=== PATIENT | male | born 1970 | race Caucasian/White ===

== ENCOUNTER 2020-04-16 11:40 | Emergency (ER) | payer BC ==
[2020-04-16 16:26] LABS: Absolute Lymphocytes (CBC) 2.5 K/uL (0.7-4.9); Basophils % 0.7 % (0-1.3); Hematocrit 46.5 % (39.6-49.0); Lymphocytes % 24.8 % (15.3-44.8); MPV 7.4 fL (7.6-11.3); RBC Red Blood Cell Count 5.23 M/uL (4.33-5.43)
--- NOTE | 2020-04-16 16:43 | RAD REPORT ---
EXAM DESCRIPTION: RAD - Chest Single View - 04/16/2020 4:26 pm CLINICAL HISTORY: FEVER COMPARISON: Two view chest November 2018 TECHNIQUE: AP portable chest image was obtained 04/16/2020 4:26 pm . FINDINGS: Lungs are clear. Interstitial pattern matches comparison. Heart and vasculature are normal . No measurable pleural effusion and no pneumothorax. No acute bony abnormality seen. No acute aortic findings suspected. IMPRESSION: No acute cardiopulmonary process.
[2020-04-16 16:50] LABS: Potassium 4.2 mmol/L (3.5-5.1)
[2020-04-16 17:21] LABS: Urine Bacteria <20 /HPF (NONE SEEN); Urine RBC NONE SEEN /HPF (NONE SEEN)
[2020-04-16 17:35] LABS: Urine Blood NEGATIVE (NEG); Urine Glucose 2+ (NEG); Urine Protein NEGATIVE (NEG); Urine Specific Gravity 1.025 (1.005-1.030); Urine pH 5.5 (5.0-7.0)
[2020-04-16 17:36] LABS: SARS-COV-2 RT PCR POSITIVE (NEGATIVE)
--- NOTE | 2020-04-16 17:43 | EDPHYS ---
Physician Documentation [facility] [place], [place] Name: Rusty Brennan Age: 50 yrs Sex: Male : 1970 Arrival Date: 04/16/2020 Time: 11:43 Bed 24 Private MD: ED Physician Venu Johansen HPI: 04/16 16:00 This 50 yrs old Male presents to ER via Ambulatory with complaints of Fever. rn 16:00 The patient reports fever, that was measured at 103 degrees Fahrenheit. rn 16:01 Onset: The symptoms/episode began/occurred at an unknown time. Modifying factors: there rn are no obvious modifying factors. Severity of symptoms: At their worst the symptoms were mild in the emergency department the symptoms have improved. The patient has experienced similar episodes in the past. Reports diagnosed with COVID Mar 08, felt like got better 2 weeks later, has had persistent fever, reports tmax 103, takes motrin, told by pcp has lingering symptoms. No new symptoms. Denies sob or productive cough, no hemoptysis, no abd pain/vomiting/diarrhea. No skin rashes. No chest pain.. Historical: - Allergies: 12:03 No Known Drug Allergies; sv - PMHx: 12:03 Pneumonia; sv - PSHx: 12:03 detached retina; sv - Immunization history:: Adult Immunizations up to date. - Social history:: Smoking status: Patient denies any tobacco usage or history of. - Family history:: not pertinent. - Hospitalizations: : No recent hospitalization is reported. ROS: 16:01 Constitutional: + fever Eyes: Negative for injury, pain, redness, and discharge, Neck: rn Negative for injury, pain, and swelling, Cardiovascular: Negative for chest pain, palpitations, and edema, Respiratory: Negative for shortness of breath, cough, wheezing, and pleuritic chest pain, Abdomen/GI: Negative for abdominal pain, nausea, vomiting, diarrhea, and constipation, Back: Negative for injury and pain, MS/Extremity: Negative for injury and deformity, Skin: Negative for injury, rash, and discoloration, Neuro: Negative for headache, numbness, tingling, and seizure. Exam: 16:01 Constitutional: This is a well developed, well nourished patient who is awake, alert, rn and in no acute distress. Head/Face: Normocephalic, atraumatic. Neck: Trachea midline, no masses palpated, and no cervical lymphadenopathy. Supple, full range of motion without nuchal rigidity, or vertebral point tenderness. No Meningismus. Cardiovascular: Regular rate and rhythm. No pulse deficits. Respiratory: No increased work of breathing, no retractions or nasal flaring. Abdomen/GI: soft, non-tender Skin: Warm, dry MS/ Extremity: Pulses equal, no cyanosis. Neuro: Awake and alert, GCS 15 Vital Signs: 12:03 BP 130 / 74; Pulse 89; Resp 16; Temp 98.3(O); Pulse Ox 100% on R/A; Weight 136.08 kg; sv Height 5 ft. 4 in. (162.56 cm); Pain 0/10; 16:37 BP 135 / 93; Pulse 86; Resp 16; Temp 98.4(O); Pulse Ox 99% on R/A; mh5 17:54 BP 133 / 86; Pulse 68; Resp 18; Temp 97.4(O); Pulse Ox 98% on R/A; mh5 12:03 Body Mass Index 51.50 (136.08 kg, 162.56 cm) sv MDM: 15:44 Patient medically screened. rn 17:41 Differential diagnosis: viral Infection, URI, pneumonia UTI. Data reviewed: vital rn signs, nurses notes, lab test result(s), radiologic studies, plain films, and as a result, I will discharge patient. Counseling: I had a detailed discussion with the patient and/or guardian regarding: the historical points, exam findings, and any diagnostic results supporting the discharge/admit diagnosis, lab results, radiology results, the need for outpatient follow up, to return to the emergency department if symptoms worsen or persist or if there are any questions or concerns that arise at home. Special discussion: I discussed with the patient/guardian in detail that at this point there is no indication for admission to the hospital. It is understood, however, that if the symptoms persist or worsen the patient needs to return immediately for re-evaluation. ED course: Neg CXR, neg UA, neg flu, COVID still positive, too early to be reinfected, will dc home with instructions to confirm or calibrate thermometer, and f/u with Dr. Bahena. . 04/16 15:56 Order name: CBC with Diff rn 04/16 15:56 Order name: Basic Metabolic Panel rn 04/16 15:56 Order name: COVID-19 : Document "Date of Symptom Onset" if Symptomatic. rn 04/16 15:56 Order name: Urine Microscopic Only rn 04/16 15:56 Order name: Procalcitonin; Complete Time: 17:40 rn 04/16 15:56 Order name: CBC with Automated Diff; Complete Time: 16:46 EDMS 04/16 15:56 Order name: XRAY Chest (1 view); Complete Time: 16:46 rn 04/16 15:56 Order name: Basic Metabolic Panel; Complete Time: 17:30 EDMS 04/16 15:56 Order name: Urine Microscopic Only; Complete Time: 17:30 EDMS 04/16 16:04 Order name: Flu ss 04/16 16:30 Order name: Urine Dipstick--Ancillary (enter results); Complete Time: 17:40 bd 04/16 17:29 Order name: COVID-19/FLU A+B; Complete Time: 17:40 EDMS 04/16 15:56 Order name: IV Start; Complete Time: 16:17 rn 04/16 15:56 Order name: Urine Dipstick-Ancillary (obtain specimen); Complete Time: 16:39 rn Administered Medications: No medications were administered Disposition: 04/16/20 17:43 Discharged to Home. Impression: Fever, unspecified. - Condition is Stable. - Discharge Instructions: Fever, Adult. - Medication Reconciliation Form, Thank You Letter, Antibiotic Education, Prescription Opioid Use form. - Follow up: Private Physician; When: As needed; Reason: Recheck today's complaints, Re-evaluation by your physician. - Problem is an ongoing problem. - Symptoms have improved. Signatures: Dispatcher [employer] [facility] Quiana Diggs RN RN sv Nieto, Roman, MD MD rn Smirch, Shelby, RN RN ss Corrections: (The following items were deleted from the chart) 16:18 15:56 CORONAVIRUS ordered. [facility] 16:18 16:05 Influenza Screen (A ordered. [facility] 18:10 17:43 04/16/2020 17:43 Discharged to Home. Impression: Fever, unspecified. Condition is ss Stable. Forms are Medication Reconciliation Form, Thank You Letter, Antibiotic Education, Prescription Opioid Use. Follow up: Private Physician; When: As needed; Reason: Recheck today's complaints, Re-evaluation by your physician. Problem is an ongoing problem. Symptoms have improved. rn
--- NOTE | 2020-04-16 17:43 | ER ---
Nurse's Notes [facility] Name: Rusty Brennan Age: 50 yrs Sex: Male : 1970 Arrival Date: 04/16/2020 Time: 11:43 Bed 24 Private MD: Diagnosis: Fever, unspecified Presentation: 04/16 12:01 Chief complaint: Patient states: fever Tmax 103, COVID+ in March and his fever sv stopped around 03/23/20. c/o fatigue and cough. Motrin taken this morning around 0300. Coronavirus screen: Client denies travel out of the [place] in the last 14 days. Client presents with at least one sign or symptom that may indicate coronavirus-19. Standard/surgical mask placed on the client. Provider contacted for isolation considerations. Client reports previous positive COVID test result. Ebola Screen: No symptoms or risks identified at this time. Risk Assessment: Do you want to hurt yourself or someone else? Patient reports no desire to harm self or others. Onset of symptoms was April 2021. 12:01 Method Of Arrival: Ambulatory sv 12:01 Acuity: MARÍA 3 sv 12:03 Initial Sepsis Screen: Does the patient meet any 2 criteria? No. Patient's initial sv sepsis screen is negative. Does the patient have a suspected source of infection? No. Patient's initial sepsis screen is negative. Triage Assessment: 12:05 General: Appears in no apparent distress. uncomfortable, Behavior is calm, cooperative, sv appropriate for age. Neuro: Level of Consciousness is awake, alert, obeys commands, Oriented to person, place, time, situation, Gait is steady. Respiratory: Respiratory effort is even, unlabored. Historical: - Allergies: 12:03 No Known Drug Allergies; sv - PMHx: 12:03 Pneumonia; sv - PSHx: 12:03 detached retina; sv - Immunization history:: Adult Immunizations up to date. - Social history:: Smoking status: Patient denies any tobacco usage or history of. - Family history:: not pertinent. - Hospitalizations: : No recent hospitalization is reported. Screenin:16 Abuse screen: Denies threats or abuse. Denies injuries from another. Nutritional ss screening: No deficits noted. Tuberculosis screening: Never had TB. Fall Risk None identified. Assessment: 18:09 Reassessment: Patient appears in no apparent distress at this time. Patient and/or ss family updated on plan of care and expected duration. Pain level reassessed. Patient is alert, oriented x 3, equal unlabored respirations, skin warm/dry/pink. Vital Signs: 12:03 BP 130 / 74; Pulse 89; Resp 16; Temp 98.3(O); Pulse Ox 100% on R/A; Weight 136.08 kg; sv Height 5 ft. 4 in. (162.56 cm); Pain 0/10; 16:37 BP 135 / 93; Pulse 86; Resp 16; Temp 98.4(O); Pulse Ox 99% on R/A; mh5 17:54 BP 133 / 86; Pulse 68; Resp 18; Temp 97.4(O); Pulse Ox 98% on R/A; mh5 12:03 Body Mass Index 51.50 (136.08 kg, 162.56 cm) sv ED Course: 11:43 Patient arrived in ED. ds1 12:01 Arm band placed on. sv 12:03 Triage completed. sv 15:44 Venu Johansen MD is Attending Physician. rn 15:56 Анна Macedo RN is Primary Nurse. ss 16:10 Missed attempt(s): 20 gauge in right antecubital area. mh5 16:15 Inserted saline lock: 22 gauge in right hand, using aseptic technique. Blood collected. ss 16:16 Patient has correct armband on for positive identification. Bed in low position. Call ss light in reach. Pulse ox on. NIBP on. 16:26 XRAY Chest (1 view) In Process Unspecified. EDMI 16:39 Urine Microscopic Only Sent. 5 16:39 CBC with Diff Sent. 5 16:39 Basic Metabolic Panel Sent. 5 16:39 Procalcitonin Sent. 5 16:39 Initial lab(s) drawn, by ED staff, sent to lab. 5 16:41 Urine Dipstick--Ancillary (enter results) Sent. 5 16:41 Urine Microscopic Only Sent. 5 17:05 Flu Sent. ss 18:09 No provider procedures requiring assistance completed. IV discontinued, intact, ss bleeding controlled, No redness/swelling at site. Pressure dressing applied. Administered Medications: No medications were administered Outcome: 17:43 Discharge ordered by . rn 18:09 Discharged to home ambulatory. ss 18:09 Condition: good 18:09 Discharge instructions given to patient, Instructed on discharge instructions, follow up and referral plans. medication usage, Demonstrated understanding of instructions, follow-up care, medications. 18:10 Patient left the ED. Signatures: Dispatcher [employer] Quiana Vazquez RN RN sv Sanford, Demi ds1 Venu Johansen MD MD rn Smirch, Shelby, RN RN ss Martinez, Maria [facility] Corrections: (The following items were deleted from the chart) 12:06 12:01 Chief complaint: Patient states: fever Tmax 103, COVID+ in March and his fever sv stopped around 03/23/20. c/o fatigue and cough. sv 12:06 12:03 Pulse 89bpm; Resp 16bpm; Pulse Ox 100%; Temp 98.3F; 136.08 kg; Height 5 ft. 4 sv in.; BMI: 51.4; sv 17:57 17:54 BP 133 / 86; Pulse 68bpm; Resp 18bpm; Pulse Ox 98% RA; Temp 98.2F Oral; mh5 mh5
[2020-04-16 18:23] VITALS: BP 133/86; TEMP 97.4; O2SAT 98
--- OUTSIDE RECORDS SUMMARY | 2020-04-17 21:58 | XMS REPORT | Clinical Summary ---
:1970 Author Organization [facility] Address [address] [place] [address] Care Team Providers Name Role Phone Servando Bahena MD Primary Care Provider Allergies No Known Active Allergies Medications Medication Sig Dispensed Refills Start Date End Date Status ZOLOFT 100 mg tablet Take 100 mg by 0 09/14/2017 Active mouth daily. ULTRAM 50 mg tablet 0 08/17/2017 Active DUEXIS 800-26.6 mg Take 1 tablet by 1 09/11/2017 Active tablet mouth 3 (three) times a day. multivitamin with Take 1 tablet by 0 Active minerals tablet mouth daily. Active Problems Problem Noted Date OA (osteoarthritis) of knee 10/06/2017 Left knee pain 09/18/2017 Surgical History Surgery Date Site/Laterality Comments CATARACT EXTRACTION W/ 07/07/2017 - Left INTRAOCULAR LENS IMPLANT 08/06/2017 CHEST TUBE INSERTION 03/09/2014 - Right from pneumo gladys 03/08/2015 REPAIR, RETINAL TEAR OR Left LATTICE DEGENERATION, USING CRYOPEXY ARTHROPLASTY, KNEE, TOTAL 10/06/2017 Knee/N/A Proced ure: LEFT TOTAL KNEE ARTHROPLAST Y; Surgeon: Dmitriy Hall MD; Lo cation: [facility] 19 OR; Service: Orthopedics; Laterality: N/A; Medical devices from this surgery are in the Implants section . Medical History Medical History Date Comments Osteoarthritis 2017 Arthritis 2017 Lai's cyst 2018 behind left knee History of Right hip Bursitis 2017 Anesthesia combative post retin a surgery 2013; no problems since; NFHA P Does not exercise x 5 months no exerci se but used to do elliptical 3-4 d/wk x 30 mins; no chest pain or sob bu t has difficulty due to knee pain GEM on CPAP History of pneumonia 2013-was admitted x 6 days with chest tube Depression History of diabetes mellitus was on meds 5 yrs ago; lost weight and no longer taking it post 97 lbs wt loss Morbid obesity with BMI of 45.0-49.9, BM I-47 adult (HCC) History of recent steroid use for knee p ain 07/2017 Uses hearing aid bilaterally Wears reading eyeglasses Social History Tobacco Use Types Packs/Day Years Used Date Never Smoker Smokeless Tobacco: Never Used Alcohol Use Drinks/Week oz/Week Comments No Sex Assigned at Date Recorded Not on file Last Filed Vital Signs Not on file Plan of Treatment Health Maintenance Due Date Last Done Comments COVID-19 VACCINE (1 of 2) 1984 HEPATITIS C SCREENING 02/03/1986 COLONOSCOPY SCREENING 02/03/2018 SHINGLES VACCINES (#1) 02/03/2018 INFLUENZA VACCINE 10/08/2019 04/21/2018 Implants Implanted Type Area Small Parts Assembler Device Shelf Model / Identifier Expiration Serial / Date Lot Vanguard Cr Por Fem-Lt 65 - [id number] IMPLANT Left: [employer] 09/15/2027 [id number] / Implanted: Qty: 1 on 10/06/2017 by Dmitriy Hall MD at [facility] DEVICES Knee / [id number] Biomet Regenx Josefina Tib Tray 71mm - [id number] IMPLANT Left: B [employer] 05/23/2027 [id number] / Implanted: Qty: 1 on 10/06/2017 by Dmitriy Hall MD at [facility] Knee / [id number] E-Poly Vanguard Cr Tib Brng 71/75 X 12 - [id number] [id number] IMPLANT Left: [employer] 03/26/2022 [id number] / Implanted: Qty: 1 on 10/06/2017 by Dmitriy Hall MD at [facility] Knee / [id number] Stem Tib Prim Finned 40mm Ascent Maxim - [id number] Knee Joint Le ft: [employer] 09/16/2027 [id number] / Implanted: Qty: 1 on 10/06/2017 by Dmitriy Hall MD at [facility] Implants Knee / [id number] Results Not on fileafter 04/17/2019 Advance Directives For more information, please contact: [phone] Type Date Recorded Patient Merry Go Round Attendant Explanati on Advance Directives, Living Will 10/06/2017 6:16 AM and 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
--- OUTSIDE RECORDS SUMMARY | 2020-04-17 21:58 | XMS REPORT | Continuity of Care Document ---
:1970 Author Organization [facility] t Address [address] [place] [address] Dr. Gons[address]. [address] [place] [address] Care Team Providers Name Role Phone Servando Bahena MD Primary Care Physician Lab, Fam Pob I Attending Clinician Unavailable Problems Condition Condition Condition Status Onset Resolution Last Treating Co mments Source Name Details Category Date Date Treatment Clinician Date OA OA Disease Active [place] (osteoarth (osteoarth 10-06 Me thodi ritis) of ritjerman) of 00:00: st knee knee 00 Left knee Left knee Disease Active August ston pain pain 7-13 [facility] 00:00: st 00 Allergies, Adverse Reactions, Alerts This patient has no known allergies or adverse reactions. Social History Social Habit Start Date Stop Date Quantity Comments Source Sex Assigned At [facility] ethodist Tobacco use and 2017-10-07 2017-10-07 Never used [facility] ethodist exposure 00:00:00 00:00:00 Alcohol intake 2017-10-07 2017-10-07 Current [facility] thodist 00:00:00 00:00:00 non-drinker of alcohol (finding) Smoking Status Start Date Stop Date Source Never smoker [place] Roberto Carlos Medications Ordered Filled Start Stop Current Ordering Indication Dosage Frequency Signature Comments Components Source Medication Medication Date Date Medication? Clinician (SIG) Name Name multivitami Yes 1{tbl} QD Take 1 [place] with 8-01 tablet by [facility] minerals 12:03: mouth st tablet 58 daily. ZOLOFT 100 Yes 100mg QD Take 100 [place] mg tablet 7-09 mg by [facility] 00:00: mouth st 00 daily. DUEXIS Yes 1{tbl} [id number] Take 1 [place] 800-26.6 mg 7-06 [id number] tablet by [facility] tablet 00:00: 3D mouth 3 st 00 (three) times a day. ULTRAM 50 Yes [place] mg tablet 6-11 [facility] 00:00: st 00 Procedures This patient has no known procedures. Plan of Care Planned Activity Planned Date Details Comments Source Future Scheduled 2019-10-08 INFLUENZA VACCINE [place] [facility] 00:00:00 [code = INFLUENZA VACCINE] Future Scheduled 2018-02-03 COLONOSCOPY SCREENING [place] [facility] 00:00:00 [code = COLONOSCOPY SCREENING] Future Scheduled 2018-02-03 SHINGLES VACCINES [place] [facility] 00:00:00 (#1) [code = SHINGLES VACCINES (#1)] Future Scheduled 1986-02-03 Hepatitis C screening [place] [facility] 00:00:00 (procedure) [code = 925117368] Future Scheduled 1984 COVID-19 VACCINE (1 [place] [facility] 00:00:00 of 2) [code = COVID-19 VACCINE (1 of 2)] Encounters Start End Encounter Admission Attending Care Care Encounter Source Date/Time Date/Time Type Type Clinicians Facility Department ID 2020-03-12 2020-03-12 Laboratory Lab, [facility] [id number] 19:00:54 19:20:54 Only Fam Pob I [facility] [id number] [place] [id number] Professio [phone] nal [address] Results This patient has no known results.
--- OUTSIDE RECORDS SUMMARY | 2020-04-17 21:58 | XMS REPORT | Summary of Care ---
:1970 Author Organization [facility] Address [address] [place] [address] Care Team Providers Name Role Phone Josef Duong Al Primary Care Provider Reason for Visit Reason Comments Cough Chills Diarrhea Encounter Details Date Type Department Care Team Description 03/12/2020 Laboratory Only [facility] Roxy Nuñez, BRIDGER [address] [facility] [address] [place] [address] Exposure to Medicine - [facility], Ad[facility] Fam Pob I SARS-associated [address] coronaviru s ([address] Dx) [place] [address] Allergies No Known Allergiesdocumented as of this encounter (statuses as of 03/12/2020) Medications Medication Sig Dispensed Refills Start Date End Date Status donepezil 5 mg tablet Take 5 mg by 0 Active mouth at bedtime. SERTraline 100 mg tablet Take 100 mg by 0 Active mouth daily. traMADOL 50 mg tablet Take 50 mg by 0 Active mouth every 6 (six) hours as needed. multivitamin solution Take 15 mL by 0 Active mouth daily. documented as of this encounter (statuses as of 03/12/2020) Active Problems No known active problemsdocumented as of this encounter (statuses as of 03/12/2020) Social History Tobacco Use Types Packs/Day Years Used Date Never Smoker Smokeless Tobacco: Never Used Alcohol Use Drinks/Week oz/Week Comments No Sex Assigned at Date Recorded Not on file documented as of this encounter Last Filed Vital Signs Not on filedocumented in this encounter Nursing Notes Treasure Fenton MA - 03/12/2020 7:00 PM Rox Brennan is a 50 year old male here for a Rule Out Covid-19 Nasopharyngeal Swab. Patient educated on plan of care for visit, swabbing technique, risks and benefits of test and length of time to receive results. Verbal consent obtained to perform test. [facility] Fact Sheet for Patients provided to patient. All droplet and contact precautions taken with appropriate PPE worn while interacting with patient. - Goggles - N95 Mask - Gloves - Gown RR=16 O2 Sat=97 Patient swabbed using appropriate nasopharyngeal technique, and patient tolerated well. Patient was discharged in stable condition. Treasure Fenton MA 03/12/2020 7:05 PM NICAL EDITOR documented in this encounter Plan of Treatment Name Type Priority Associated Diagnoses Order S chedule COVID-19 (MOLECULAR LAB Routine Exposure to Expected : 03/12/2020, TESTING SARS-associated Expires: 022 NUCLEIC ACID coronavirus AMPLIFICATION) Health Maintenance Due Date Last Done Comments Depression Screening 1980 DTaP,Tdap,and Td Vaccines (1 - 02/03/1987 Tdap) COLON CANCER SCREENING ANNUAL 02/03/2018 FIT/FOBT COLON CANCER SCREENING FIT DNA 02/03/2018 EVERY 3 YEARS COLON CANCER SCREENING 02/03/2018 SIGMOIDOSCOPY EVERY 5 YEARS COLONOSCOPY 02/03/2018 Colorectal Cancer Screening 02/03/2018 Zoster Recombinant Vaccine 02/03/2018 (SHINGRIX) (1 of 2) INFLUENZA VACCINE (#1) 2019 PNEUMOCOCCAL 0-64 YEARS COMBINED Aged Out No longer eligible based on SERIES patient's age to complete this topic documented as of this encounter Implants Implanted Type Area Dentist Device Shelf Model / Identifier Expiration Date Ser ial / Lot Lens, Minh #[id number] - [id number] LENS Left: Eye Minh 01/06/2022 [id number] / Implanted: Qty: 1 on 07/30/2017 by Rashaun Connolly MD at [facility] 2 [id number] / [id number] 1 05 documented as of this encounter Results Not on filedocumented in this encounter Visit Diagnoses Diagnosis Exposure to SARS-associated coronavirus - Primary documented in this encounter Additional Health Concerns Infection Onset Date Last Indicated Resolved Time COVID-19 Rule Out 03/12/2020 03/12/2020 documented as of this encounter Insurance Payer Benefit Plan Subscriber ID Effective Dates Phone Address Type / Group [facility] [id number] [id number] [phone] [address] PPO/POS [place] [employer] [id number] [place] [address] documented as of this encounter
== END 2020-04-16 18:10 | disposition home or self-care (01) ==
LOC: ER 11:40
DX: U07.1 COVID-19 (principal)
CPT/HCPCS: 85025; 80048; 36415; 84145; 0240U; 71045; 99284; 81003; 81015

== ENCOUNTER 2024-02-22 10:01 | Inpatient (IN) | payer BC ==
[2024-02-22 10:46] VITALS: BMI 47.4
[2024-02-22] MEDS ORDERED: ONDANSETRON 4 MG/2 ML VIAL IV PRN (11:13)
[2024-02-22 11:40] LABS: Absolute Eosinophils 0.1 K/uL (0-0.5); Absolute Lymphocytes (CBC) 1.1 K/uL (0.7-4.9); Absolute Monocytes 1.2 K/uL (0.1-1.3); Absolute Neutrophil 9.3 K/uL (1.8-8.0); Basophils % 0.4 % (0-1.3); Hematocrit 47.9 % (39.6-49.0); Hemoglobin 16.1 g/dL (13.6-17.9); Lymphocytes % 9.4 % (15.3-44.8); MCHC 33.6 g/dL (32.0-36.0); MCV 92.2 fL (80-100); MPV 6.8 fL (7.6-11.3); Monocytes % 10.6 % (3.3-12.3); Neutrophils % 78.6 % (41.7-73.7); Nucleated Red Blood Cells % 0.1 % (0-0); Platelets 201 thou/uL (152-406); Red Cell Distribution Width 13.3 % (12.1-15.2)
[2024-02-22 12:02] LABS: Albumin 3.7 g/dL (3.4-5.0); Albumin/Globulin Ratio 0.9 (1.1-1.8); Anion Gap 9.7 mEq/L (5.0-15.0); Bilirubin Total 0.7 mg/dL (0.2-1.0); Globulin 4.3 g/dL (2.3-3.5); Magnesium 2.1 mg/dL (1.6-2.4); Potassium 3.7 mEq/L (3.5-5.1)
[2024-02-22] MEDS: MORPHINE 2 MG/ML SYR IV PRN (12:11)
[2024-02-22] MEDS: NA CHLORIDE 0.9% 1,000 ML IV SCH ×2 (12:13→12:45)
[2024-02-22] MEDS: PIPER TAZO 3.375 GM in NA CHLORIDE 0.9% 100 ML IV SCH (12:13)
--- NOTE | 2024-02-22 12:16 | RAD REPORT ---
EXAMINATION: CT HEAD WITHOUT CONTRAST CLINICAL INDICATION: Male, 54 years old.cellulitis face/ear TECHNIQUE: Axial CT images from the skull base to the vertex without intravenous contrast. Coronal an d sagittal reformatted images were created from the data set. One or more of the following dose reduction techniques were used: Automated exposure control, adjustment of the mA and/or kV according to patient size, and/or iterative reconstruction. Unless otherwise specified, incidental findings do not require dedicated imaging follow-up. [id number]. COMPARISON: No prior exam. FINDINGS: INTRACRANIAL: No acute intracranial hemorrhage. No hydrocephalus. No mass effect or midline shift. No significant white matter disease. Diffuse edema associated with the right year including along the right external auditory canal. Small right parotid nodules likely reflecting reactive lymph nodes. Th e external auditory canal is patent. VASCULATURE: No visualized abnormalities in the arteries or dural venous sinuses. SCALP/SKULL: Trace right mastoid fluid. SINUSES: The visualized paranasal sinuses and mastoid air cells are predominantly clear. IMPRESSION: No acute intracranial abnormality. Skin thickening and soft tissue swelling at the right ear and external auditory canal which may repre sent cellulitis and otitis externa. There is trace right mastoid fluid which is nonspecific but no evidence to suggest involvement of the internal auditory canal or evidence of otomastoiditis. The rig ht external ear canal is patent. No abscess identified.
--- NOTE | 2024-02-22 12:17 | RAD REPORT ---
EXAM: Chest Pa And Lat (2 Views) HISTORY: cellulitis face COMPARISON: 04/16/2020 FINDINGS: LUNGS/PLEURA: The lungs are clear. No pleural effusions or pneumothorax. No pulmonary edema. Minimal linear scarring at the right lung base. MEDIASTINUM: The mediastinal silhouette is within normal limits. CARDIAC: The cardiac silhouette is within normal limits. UPPER ABDOMEN: No significant abnormality. BONES: No acute fracture. LINES/TUBES/OTHER: N/A IMPRESSION: No evidence of acute cardiopulmonary disease.
[2024-02-22] MEDS: INSULIN REGULAR (HUMAN) 100 UNIT/ML SQ SCH (12:20)
[2024-02-22] MEDS: ENOXAPARIN 40 MG/0.4 ML SQ SCH (16:39)
[2024-02-22] MEDS: METFORMIN HCL 500 MG TAB PO SCH (16:39)
[2024-02-22] MEDS: TOBRADEX 0.3-0.1% OPTH SUSP OTIC SCH (21:09)
[2024-02-23] MEDS: ACETAMINOPHEN 500 MG TAB PO PRN (00:42)
--- NOTE | 2024-02-23 06:55 | HP ---
Date of Admission: 02/22/2024 Chief Complaint: Redness, swelling, and pain of face. History Of Present Illness: This is a 54-year-old pleasant male patient who came into office with his today with 3 days history of swelling and redness involving right external ear and area of face around this. Denies any history of insect bite. Has had some low-grade fever with this, but he had no ear discharge or bleeding. Denies any cough, congestion, sore throat. After he was evaluated, decision was made to admit him to the hospital for this problem. Allergies: NO KNOWN ALLERGIES. Medications: 1. Atorvastatin 20 mg daily in the evening. 2. Jardiance 25 mg daily. 3. Losartan 50 mg daily in morning. 4. Metformin 500 mg takes 2 tablets 2 times a day. 5. Sertraline 100 mg takes 2 tablets daily. 6. Januvia 100 mg daily. 7. Mounjaro 5 mg once a week. Review of Systems: ENT: As mentioned above. Dermatology: As mentioned above. CONSTITUTIONAL: As mentioned above. All other systems reviewed and negative. Past Medical History: Significant for: 1. Hypertension. 2. Hyperlipidemia. 3. Type 2 diabetes mellitus. 4. Benign prostatic hypertrophy. 5. Depression. Past Surgical History: 1. Cataract surgery. 2. Knee surgery. Family History: Father , had stroke. Mother , had diabetes, hypertension, and stroke. Social History: Negative for smoking and alcohol use. Physical Examination: Vital Signs: Blood pressure 126/83, pulse 92, temperature 98.3, respiratory rate 15, weight 285.2 pounds, height 63.5 inches. General: Awake, alert, oriented, not in distress. HEENT: Head atraumatic, normocephalic. Conjunctivae nonerythematous. Sclerae white. Mouth, no thrush or edema noted. Ears/Nose, no mass, lesion, discharge noted. Face examination shows right external ear is swollen and this involves entire external ear and it is red, warm, and tender to touch. The patient also has swelling and redness of right face anterior to this external ear and there is no open wound. His skin behind the right external ear also is red including skin over the right mastoid process with some soft tissue swelling. There is no open wound. Right ear exam, his right ear canal is moderately swollen. There is no exudate. Left ear exam is normal. Neck: Supple. No JVD, lymph nodes, bruit, thyromegaly noted. Lungs: Bilateral good equal air entry. Clear to auscultation. No rhonchi. No rales. Heart: Normal heart sounds, no murmur or gallop. Abdomen: Soft, bowel sounds normal. No guarding, rigidity, tenderness, mass, hepatosplenomegaly, distention, or bruit noted. Extremities: No leg edema. No calf tenderness. Skin: No rash, ulcer, cellulitis. Lymphatics: No lymph node enlargement in neck, supraclavicular, infraclavicular region. Neuro: No focal neurological deficit. Chest: Unremarkable. External Genitalia: Deferred. Rectal: Deferred. Laboratory Data: WBC 7.8, hemoglobin 16.1, platelets 201. Sodium 133, potassium 3.7, chloride 104, bicarb 23, BUN 17, creatinine 1.35, glucose 241. Liver function tests unremarkable. Initial lactic acid 2.3. Repeat lactic acid 2.2. Chest x-ray, no acute cardiopulmonary changes and CAT scan of the head was negative for any acute intracranial changes. There is no evidence of mastoiditis. Impression: 1. Cellulitis, right face. 2. Otitis externa, right ear. 3. Acute kidney injury. 4. Type 2 diabetes mellitus, uncontrolled. 5. Hypertension. 6. Hyperlipidemia. 7. Depression. Plan: We will go ahead and admit the patient to hospital for further evaluation and management of this problem. The patient is appropriate for inpatient and is expected to spend 2 midnights in hospital. We will go ahead and start the patient on IV antibiotic, which is Zosyn per order and also start the patient on eardrops Tobradex per order. We will monitor history of infection and make adjustment on antibiotic if needed depending on his response. For acute kidney injury, we will go ahead and give IV fluid and monitor blood work. For diabetes, we will continue his home medications per order and also order sliding scale insulin. For hypertension, continue his antihypertensive medication and monitor blood pressure. No need for any further intervention at this time. For hyperlipidemia, continue his statin therapy and no need for further intervention. For depression, we will continue sertraline per order. No need for further intervention. Total time spent today 85 minutes including evaluation and management for this admission, review of prior office visit record and making arrangements for hospital admission. SAQIB/MODL Voice ID: [id number] VENKAT
[2024-02-23 07:17] LABS: Anion Gap 10.5 mEq/L (5.0-15.0); Potassium 3.5 mEq/L (3.5-5.1)
[2024-02-23] MEDS: ALOGLIPTIN BENZOATE 12.5 MG TABLET PO SCH (08:49)
[2024-02-23] MEDS: LOSARTAN POTASSIUM 50 MG TABLET PO SCH (08:49)
[2024-02-23] MEDS: SERTRALINE HCL 100 MG TAB PO SCH (08:50)
[2024-02-23] MEDS: POTASSIUM 25 MEQ EFFERV TAB PO ONE (08:50)
[2024-02-23] MEDS: NA CHLORIDE 0.9% 1,000 ML IV SCH (08:52)
[2024-02-23] MEDS ORDERED: HOME MED 1 EA UNK (Sitagliptin Phosphate [Januvia] 50 MG Tablet) PO SCH (09:00)
[2024-02-23] MEDS: HOME MED 1 EA UNK (Empagliflozin [Jardiance] 25 MG Tablet) PO SCH (09:00)
--- NOTE | 2024-02-23 20:32 | PN ---
Date of Progress Note: 02/23/2024 Subjective: The patient was seen this morning for followup. He was lying in bed. His was pres ent with him at bedside. No new complaints or problems reported by patient. Objective: Vital Signs: Reviewed. HEENT: Unremarkable except right external ear redness and swelling is slightly better today than yes terday. Redness and soft tissue swelling of skin anterior to the right external ear involving face i s also better today compared to yesterday. Lungs: Clear to auscultation. Heart: Sounds normal. Abdomen: Soft. Bowel sounds normal. No guarding, rigidity, tenderness, distention. Extremities: No leg edema. Laboratory Data: Sodium 133, potassium 3.5, chloride 104, bicarb 20, BUN 16, creatinine 1.12, glucos e 194. Impression: 1.Cellulitis, face. 2.Right otitis externa. 3.Acute kidney injury. 4.Type 2 diabetes mellitus. Plan: We will go ahead and continue IV fluid, reduce rate. Continue IV antibiotics. We will repeat blood work tomorrow. Ambulation was encouraged. Possible discharge to go home tomorrow depending o n his condition and details and plan of treatment discussed with the patient. SAQIB/MODL Voice ID: [id number] Report ID: [id number]
[2024-02-24 06:11] LABS: Anion Gap 12.6 mEq/L (5.0-15.0); Potassium 3.6 mEq/L (3.5-5.1)
[2024-02-24 08:23] VITALS: BP 154/82; TEMP 99.2
[2024-02-24] MEDS: POTASSIUM CL SA 10 MEQ TAB PO ONE (08:39)
[2024-02-24] MEDS: Empagliflozin [Jardiance] 25 MG Tablet *PT OWN MED PO SCH (08:39)
[2024-02-24 10:30] VITALS: O2SAT 90
--- NOTE | 2024-02-25 06:43 | DS ---
Date of Discharge: 02/24/2024 Disposition: Discharged to go home. Discharge Medications And Instructions: 1. Continue all prior home medications. 2. Take Augmentin 875 mg 2 times a day with food for 10 days. 3. Doxycycline 100 mg 2 times a day with food for 10 days. 4. Avoid direct sunlight exposure while taking doxycycline. 5. Follow up at my office next week. 6. TobraDex drops, 4 drops in right ear 2 times a day. Physical Examination: HEENT: Significant for very minimal pink discoloration of right external ear with very minimal swelling. Overall significantly better. Skin over right external ear appears dry. Skin behind right external ear is normal. The redness and slight swelling around the mastoid area of soft tissue swelling and scalp redness from area behind the right ear has resolved and redness and soft tissue swelling anterior to right external ear has significantly improved. Has very minimal area of faint pink discoloration just anterior to ear. Otherwise, rest of the area has improved. Lungs: Clear to auscultation. Heart: Sounds normal. Abdomen: Soft. Bowel sounds normal. No guarding, rigidity, tenderness, distention. Extremities: No leg edema. Hospital Course: This is a 54-year-old pleasant male patient who came into office with redness, swelling, and pain over face and right ear area. Please see dictated H and P for more information. The patient was evaluated at office, decision was made to admit him to the hospital with cellulitis of face and right otitis externa. The patient also had acute kidney injury as noted on the initial labs. After he was admitted to the hospital, we started him on TobraDex ear drops as he had right otitis externa. Along with that, we started him on IV antibiotic, which was Zosyn. Overall, his condition has improved significantly. IV fluid was given for acute kidney injury problem and that actually has helped to improve his renal function. Today, after I saw him, after seeing significant improvement, decision was made to discharge him to go home with above-mentioned medications and instructions. Final Diagnoses: 1. Cellulitis, face, right side. 2. Otitis externa, right ear. 3. Acute kidney injury. 4. Type 2 diabetes mellitus, uncontrolled. 5. Hypertension. 6. Hyperlipidemia. 7. Depression. Laboratory Data: Upon admission WBC 7.8, hemoglobin 16.1, platelets 201. Sodium 133, potassium 3.7, chloride 104, bicarb 23, BUN 17, creatinine 1.35, glucose 241. Liver function tests unremarkable. Initial lactic acid 2.3. Repeat lactic acid 2.2. Chest x-ray, no acute cardiopulmonary changes and CAT scan of the head was negative for any acute intracranial changes. There is no evidence of mastoiditis. Total time spent 40 minutes. SAQIB/MODL Voice ID: [id number] Report ID: [id number] [facility]
== END 2024-02-24 08:50 | disposition home or self-care (01) | DRG 603 ==
LOC: 2ND 10:01
PROVIDERS: ADMIT Internal Medicine; ATTEND Internal Medicine
DX: L03.211 Cellulitis of face (principal); N17.9 Acute kidney failure, unspecified; E11.9 Type 2 diabetes mellitus without complications; F32.A Depression, unspecified; E78.5 Hyperlipidemia, unspecified; H60.90 Unspecified otitis externa, unspecified ear; Z79.4 Long term (current) use of insulin; N40.0 Benign prostatic hyperplasia without lower urinary tract symptoms
CPT/HCPCS: 36415; 70450; 71046; 80048; 80053; 82947; 83605; 83735; 85025; J1650; J2270; J2543; J7030